=== PATIENT | male | born 1965 | race Caucasian/White ===

== ENCOUNTER → 2020-05-20 | Outpatient (CLI) | payer OTHER ==
[~2020-05-20] MED LIST: CENTRUM SILVER1 EAC2 PO; HYDROCODONE-AP1 EAC6 PO; TUMS PO
== END ==
LOC: LAB 07:38
PROVIDERS: ATTEND Anesthesiology
DX: Z01.812 Encounter for preprocedural laboratory examination (principal); Z20.828 Contact with and (suspected) exposure to other viral communicable diseases

== ENCOUNTER → 2021-08-06 | Outpatient (CLI) | payer OTHER | LOC: CAT 08:21 | PROVIDERS: ATTEND Family Medicine | DX: Z13.6 Encounter for screening for cardiovascular disorders (principal); I25.10 Atherosclerotic heart disease of native coronary artery without angina pectoris; E78.00 Pure hypercholesterolemia, unspecified ==